=== PATIENT | male | born 1960 | race Caucasian/White ===

== ENCOUNTER 2021-01-30 07:26 | Emergency (ER) | payer BC ==
[2021-01-30] MEDS ORDERED: Ondansetron 4 MG/2 ML SDV IV ONE (07:28)
[2021-01-30] MEDS ORDERED: Lactated Ringers 1,000 ML IV ONE (07:39)
[2021-01-30] MEDS ORDERED: Aspirin 81 MG Tab.Chew PO ONE (07:39)
[2021-01-30] MEDS ORDERED: Morphine 2 MG/ML SYRINGE IVPUSH ONE (07:40)
[2021-01-30] MEDS: Sodium Chloride 0.9% 10 ML Syringe FLUSH PRN ×3 (07:40→11:35)
[2021-01-30] MEDS ORDERED: Nitroglycerin/D5W 25 MG/250 ML BOTTLE IV SCH (07:45)
[2021-01-30] MEDS ORDERED: Iopamidol 755 MG/ML 150 ML Bottle IV ONE (08:06)
[2021-01-30] MEDS ORDERED: Iopamidol 755 Mg/ML 100 ML Bottle ONE (08:07)
[2021-01-30 08:11] LABS: PTT,PARTIAL THROMBOPLSTIN TIME 22.4 SEC (24.5-32.8)
[2021-01-30 08:20] LABS: CHLORIDE,CL 107 mmol/L (98-107); SODIUM,NA 140 mmol/L (136-145)
[2021-01-30] MEDS ORDERED: Lactated Ringers 1,000 ML IV SCH (08:30)
--- NOTE | 2021-01-30 08:46 | EDM.PDOC ---
ED HPI GENERAL MEDICAL PROBLEM - General Chief Complaint: Chest Pain Stated Complaint: chest pain Time Seen by Provider: 01/30/21 07:26 Source of Information: Reports: Patient History Limitations: Reports: No Limitations - History of Present Illness INITIAL COMMENTS - FREE TEXT/NARRATIVE: Pt. presents to ER with complaints of substernal chest pain with radiation into his back between his shoulder blades. He states that the discomfort started at approx. 0630 this AM. Pt. was noted to be extremely ashen on arrival to ER and has a sense of impending doom. He was diaphoretic. Pt. has a history of CAD S/P CABG in 2017. Angio at that time showed 100% LAD, 99% RCA, 70% circumflex. CABG performed by Dr. Jean-Baptiste. He has been doing well since then. He was seen by cardiology in June with complaints of chest pain. He had an EKG at that time which did not show any ischemic changes. He was not stressed at that time. Pt. currently on Toprol XL 25 mg and lipitor 20mg. He is a non-smoker. He is not diabetic. Pt. complains of nausea but has not vomited. He is not short of breath. EKG today showed ST depression in the anteriolateral leads. Onset: Today Onset Date: 01/30/21 Onset Time: 06:30 Location: Reports: Chest Quality: Reports: Ache, Pressure Severity: Severe Chest pain Pain Score (Numeric/FACES): 8 - Related Data Allergies Allergy/AdvReac Type Severity Reaction Status Date / Time No Known Allergies Allergy Verified 01/30/21 07:39 Home Meds: Home Meds Aspirin 81 mg PO QAM 01/30/21 [History] Metoprolol Succinate 25 mg PO QAM 01/30/21 [History] Omeprazole 20 mg PO QPM 01/30/21 [History] atorvaSTATin [Lipitor] 20 mg PO QPM 01/30/21 [History] ED ROS GENERAL - Review of Systems Review Of Systems: See Below Constitutional: Reports: No Symptoms HEENT: Reports: No Symptoms Respiratory: Reports: No Symptoms Cardiovascular: Reports: Chest Pain Endocrine: Reports: No Symptoms GI/Abdominal: Reports: No Symptoms : Reports: No Symptoms Musculoskeletal: Reports: No Symptoms Skin: Reports: Pallor, Diaphoresis Neurological: Reports: No Symptoms Psychiatric: Reports: No Symptoms Hematologic/Lymphatic: Reports: No Symptoms Immunologic: Reports: No Symptoms ED EXAM, GENERAL - Physical Exam Exam: See Below Exam Limited By: No Limitations General Appearance: Alert, WD/WN, No Apparent Distress Head: Atraumatic, Normocephalic Neck: Normal Inspection, Supple, Non-Tender, Full Range of Motion Respiratory/Chest: No Respiratory Distress, Lungs Clear, Normal Breath Sounds, No Accessory Muscle Use, Chest Non-Tender Cardiovascular: Normal Peripheral Pulses, Regular Rate, Rhythm Peripheral Pulses: 4+: Radial (R) GI/Abdominal: Soft, Non-Tender, No Distention, No Mass (Male) Exam: Deferred Rectal (Males) Exam: Deferred Back Exam: Normal Inspection, Full Range of Motion Extremities: Normal Inspection, Normal Range of Motion, Non-Tender, No Pedal Edema, Normal Capillary Refill Neurological: Alert, Oriented, CN II-XII Intact, Normal Cognition, Normal Reflexes, No Motor/Sensory Deficits Psychiatric: Normal Affect, Normal Mood Skin Exam: Warm, Dry, Intact, Normal Color, No Rash Lymphatic: No Adenopathy #1 Interpretation Rhythm: NSR [place]: Normal P-Wave: Present QRS: Normal ST-T: Depressed (V4, V5, V6) QT: Normal Course - Vital Signs Last Recorded V/S: Last Vital Signs Temp 36.2 C 01/30/21 09:50 Pulse 57 L 01/30/21 10:27 Resp 16 01/30/21 10:27 BP 136/78 01/30/21 10:27 Pulse Ox 95 01/30/21 10:27 - Orders/Labs/Meds Orders: Active Orders 24 hr Category Date Time Status AAA Screen [US] Stat Exams 01/30/21 10:56 Ordered Ang Chest [CT] Stat Exams 01/30/21 08:02 Taken Chest 1V Frontal [CR] Urgent Exams 01/30/21 07:28 Ordered Heparin Sodium/0.45% NaCl [Heparin 25,000 Units in 1/2 Med 01/30/21 11:15 Ordered NS 500 ML] 500 ml IV TITRATE Lactated Ringers [Ringers, Lactated] 1,000 ml Med 01/30/21 08:30 Active IV ASDIRECTED Nitroglycerin/D5W [Nitroglycerin 25 MG/D5W 250 ML] Med 01/30/21 07:45 Active 25 mg in 250 ml IV TITRATE Sodium Chloride 0.9% [Saline Flush] Med 01/30/21 07:39 Active 10 ml FLUSH ASDIRECTED PRN Saline Lock Insert [OM.PC] Routine Oth 01/30/21 07:39 Ordered Medication Orders Nitroglycerin/Dextrose (Nitroglycerin 25 Mg/D5w 250 Ml) 25 mg in 250 mls @ 6 mls/hr IV TITRATE ODILIA; Protocol Last Infusion: 01/30/21 10:40 Dose: 25 mcg/min, 15 mls/hr Documented by: Infusion: 01/30/21 09:13 Dose: 20 mcg/min, 12 mls/hr Documented by: Infusion: 01/30/21 08:29 Dose: 15 mcg/min, 9 mls/hr Documented by: Admin: 01/30/21 07:59 Dose: 10 mcg/min, 6 mls/hr Documented by: ARTI Lactated Ringer's (Ringers, Lactated) 1,000 mls @ 125 mls/hr IV ASDIRECTED ODILIA Last Admin: 01/30/21 08:45 Dose: 125 mls/hr Documented by: ARTI Heparin Sodium/Sodium Chloride (Heparin 25,000 Units In 1/2 Ns 500 Ml) 500 mls @ 20 mls/hr IV TITRATE ODILIA Sodium Chloride (Sodium Chloride 0.9% 10 Ml Syringe) 10 ml FLUSH ASDIRECTED PRN PRN Reason: Keep Vein Open Last Admin: 01/30/21 09:39 Dose: 10 ml Documented by: Admin: 01/30/21 07:40 Dose: 10 ml Documented by: ARTI Labs: Laboratory Tests 01/30/21 01/30/21 01/30/21 Range/Units 07:43 07:43 07:43 WBC 8.4 (4.0-10.2) K/uL RBC 5.19 (4.33-5.41) M/uL Hgb 15.6 (13.1-16.8) g/dL Hct 45.7 (39.0-49.0) % MCV 88.1 (84.0-98.0) fL MCH 30.1 (28.2-33.3) pg MCHC 34.1 (31.7-36.0) g/dL RDW 12.9 (11.2-14.1) % Plt Count 256 (150-350) K/uL Neut % (Auto) 66.2 (45.0-80.0) % Lymph % (Auto) 26.1 (10.0-50.0) % [place] % (Auto) 6.4 (2.0-14.0) % Eos % (Auto) 0.8 (0.0-5.0) % Baso % (Auto) 0.5 (0.0-2.0) % Neut # (Auto) 5.58 (1.40-7.00) K/uL Lymph # (Auto) 2.20 (0.50-3.50) K/uL [place] # (Auto) 0.54 (0.00-1.00) K/uL Eos # (Auto) 0.07 (0.00-0.50) K/uL Baso # (Auto) 0.04 (0.00-0.20) K/uL PT 10.4 (9.5-12.0) SEC INR 1.0 APTT 22.4 L (24.5-32.8) SEC D-Dimer, Quantitative (0-400) ng/mL Sodium 140 (136-145) mmol/L Potassium 4.1 (3.5-5.1) mmol/L Chloride 107 (98-107) mmol/L Carbon Dioxide 19.1 L (21.0-32.0) mmol/L Anion Gap 18.0 H (7-15) meq/L BUN 24 H (7-18) mg/dL Creatinine 1.14 (0.51-1.17) mg/dL Est Cr Clr Drug Dosing 68.33 mL/min Estimated GFR (MDRD) > 60 mL/min Glucose 149 H (70-99) mg/dL Calcium 8.7 (8.5-10.1) mg/dL Total Bilirubin 0.4 (0.2-1.0) mg/dL AST 22 (15-37) U/L ALT 30 (12-78) U/L Alkaline Phosphatase 68 (46-116) IU/L Troponin I High Sens 150 H* (<=76) ng/L NT-Pro-B Natriuret Pep 37 (0-125) pg/mL Total Protein 7.1 (6.4-8.2) g/dL Albumin 4.1 (3.4-5.0) g/dL 01/30/21 01/30/21 Range/Units 07:43 10:45 WBC (4.0-10.2) K/uL RBC (4.33-5.41) M/uL Hgb (13.1-16.8) g/dL Hct (39.0-49.0) % MCV (84.0-98.0) fL MCH (28.2-33.3) pg MCHC (31.7-36.0) g/dL RDW (11.2-14.1) % Plt Count (150-350) K/uL Neut % (Auto) (45.0-80.0) % Lymph % (Auto) (10.0-50.0) % [place] % (Auto) (2.0-14.0) % Eos % (Auto) (0.0-5.0) % Baso % (Auto) (0.0-2.0) % Neut # (Auto) (1.40-7.00) K/uL Lymph # (Auto) (0.50-3.50) K/uL [place] # (Auto) (0.00-1.00) K/uL Eos # (Auto) (0.00-0.50) K/uL Baso # (Auto) (0.00-0.20) K/uL PT (9.5-12.0) SEC INR APTT (24.5-32.8) SEC D-Dimer, Quantitative < 100 (0-400) ng/mL Sodium (136-145) mmol/L Potassium (3.5-5.1) mmol/L Chloride (98-107) mmol/L Carbon Dioxide (21.0-32.0) mmol/L Anion Gap (7-15) meq/L BUN (7-18) mg/dL Creatinine (0.51-1.17) mg/dL Est Cr Clr Drug Dosing mL/min Estimated GFR (MDRD) mL/min Glucose (70-99) mg/dL Calcium (8.5-10.1) mg/dL Total Bilirubin (0.2-1.0) mg/dL AST (15-37) U/L ALT (12-78) U/L Alkaline Phosphatase (46-116) IU/L Troponin I High Sens 3821 H* (<=76) ng/L NT-Pro-B Natriuret Pep (0-125) pg/mL Total Protein (6.4-8.2) g/dL Albumin (3.4-5.0) g/dL Meds: Medications Generic Name Dose Route Start Last Admin Trade Name Kiel PRN Reason Stop Dose Admin Nitroglycerin/Dextrose 25 mg in 250 mls @ 6 mls/hr 01/30/21 07:45 01/30/21 10:40 Nitroglycerin 25 Mg/D5w 250 Ml IV 25 mcg/min TITRATE ODILIA 15 mls/hr Infusion Protocol 10 MCG/MIN Lactated Ringer's 1,000 mls @ 125 mls/hr 01/30/21 08:30 01/30/21 08:45 Ringers, Lactated IV 125 mls/hr ASDIRECTED ODILIA Administration Heparin Sodium/Sodium Chloride 500 mls @ 20 mls/hr 01/30/21 11:15 Heparin 25,000 Units In 1/2 Ns 500 Ml IV TITRATE ODILIA 1,000 UNITS/HR Sodium Chloride 10 ml 01/30/21 07:39 01/30/21 09:39 Sodium Chloride 0.9% 10 Ml Syringe FLUSH 10 ml ASDIRECTED PRN Administration Keep Vein Open Discontinued Medications Generic Name Dose Route Start Last Admin Trade Name Kiel PRN Reason Stop Dose Admin Aspirin 243 mg 01/30/21 07:39 01/30/21 08:00 Aspirin 81 Mg Tab.Chew PO 01/30/21 07:40 243 mg ONETIME ONE Administration Heparin Sodium (Porcine) 4,000 units 01/30/21 11:06 Heparin Sodium 5,000 Units/Ml Vial IVPUSH 01/30/21 11:07 .BOLUS ONE Lactated Ringer's 1,000 mls @ 1,000 mls/hr 01/30/21 07:39 01/30/21 07:59 Ringers, Lactated IV 01/30/21 08:38 1,000 mls/hr .BOLUS ONE Administration Iopamidol Confirm 01/30/21 08:06 Iopamidol 755 Mg/Ml 150 Ml Bottle Administered 01/30/21 08:07 Dose 150 ml IV .STK-MED ONE Iopamidol Confirm 01/30/21 08:07 01/30/21 08:25 Iopamidol 755 Mg/Ml 100 Ml Bottle Administered 01/30/21 08:08 100 ml Dose Administration 100 ml .ROUTE .STK-MED ONE Morphine Sulfate 2 mg 01/30/21 07:40 01/30/21 07:55 Morphine 2 Mg/Ml Syringe IVPUSH 01/30/21 07:41 2 mg ONETIME ONE Administration Morphine Sulfate 4 mg 01/30/21 09:31 01/30/21 09:37 Morphine 4 Mg/Ml Syringe IVPUSH 01/30/21 09:32 4 mg ONETIME ONE Administration Ondansetron HCl 4 mg 01/30/21 07:28 01/30/21 07:39 Ondansetron 4 Mg/2 Ml Sdv IV 01/30/21 07:29 4 mg ONETIME ONE Administration - Radiology Interpretation Free Text/Narrative:: CTA of chest obtained to rule out aortic aneurysm prior to heparinization due to symptoms. Test was non-diagnostic to rule of TAA/AAA. No PE noted. Abdominal aortic ultrasound was performed and did not show any obvious aneurysmal pathology. Departure - Departure Time of Disposition: 09:00 Disposition: DC/Tfer to Acute Hospital 02 Condition: Critical Clinical Impression: Acute coronary syndrome - Discharge Information Referrals: PCP,Not In Area [Primary Care Provider] - Forms: Interfacility Transfer EMTALA Sepsis Event Note (ED) - Focused Exam Vital Signs: Vital Signs Temp Pulse Resp BP Pulse Ox Pulse Ox 01/30/21 09:50 36.2 C 60 16 137/106 H 98 01/30/21 09:45 57 L 16 136/78 95 01/30/21 09:30 58 L 17 151/83 H 96 01/30/21 09:15 36.3 C 54 L 16 141/87 H 97 01/30/21 09:00 59 L 17 136/82 96 01/30/21 08:44 60 15 146/84 H 96 01/30/21 08:12 64 16 160/96 H 99 01/30/21 07:57 37.0 C 57 L 16 156/108 H 97 01/30/21 07:28 37.0 C 55 L 16 159/100 H 99 99 - Problem List Review Problem List Initiated/Reviewed/Updated: Yes - My Orders Last 24 Hours: My Active Orders 01/30/21 10:56 AAA Screen [US] Stat 01/30/21 11:15 Heparin Sodium/0.45% NaCl [Heparin 25,000 Units in 1/2 NS 500 ML] 500 ml IV TITRATE - Assessment/Plan Last 24 Hours: My Active Orders 01/30/21 10:56 AAA Screen [US] Stat 01/30/21 11:15 Heparin Sodium/0.45% NaCl [Heparin 25,000 Units in 1/2 NS 500 ML] 500 ml IV TITRATE Plan: Pt. was accepted in transfer by Dr. Kiser, hospitalist at [facility]. Pt. will be transported via [facility] ambulance. Per discussion with cardiology, pt. will be heparinized, as visualized portions of aorta on CTA and ultrasound were negative. Pt. was started on a nitro drip, currently at 25 mcg/min. Pain is down to "6" from initial pain of "10" following numerous doses of morphine. Troponin repeated at 3 hours, now 3821 (initial was 150). Discussed findings at length with patient and his . He is a code 1. EMTALA form was completed.
[2021-01-30] MEDS ORDERED: Morphine 4 MG/ML Syringe IVPUSH ONE (09:31)
[2021-01-30] MEDS ORDERED: Heparin Sodium 5,000 Units/ML Vial IVPUSH ONE (11:06)
[2021-01-30] MEDS ORDERED: Heparin Sodium/0.45% NaCl 500 ML IV SCH (11:15)
== END 2021-01-30 12:16 ==
LOC: LL.ED 07:26
DX: I24.9 Acute ischemic heart disease, unspecified (principal); I25.810 Atherosclerosis of coronary artery bypass graft(s) without angina pectoris
CPT/HCPCS: 36415; 71045; 71275; 76706; 80053; 83880; 84484; 85025; 85379; 85610; 85730; 93005; 93010; 96365; 96366; 96368; 96375; 96376; 99284; 99285-25; A9270-GY; J1644; J2270; J2405; J3490; J7120; Q9967